=== PATIENT | female | born 1995 ===

== ENCOUNTER 2016-05-24 20:51 | Emergency (ER) | payer OTHER ==
[~2016-05-24] VITALS: Ht 162.6 cm; Wt 102.6 kg
[2016-05-24 20:57] VITALS: TEMP 37.1; Ht 162.6 cm; Wt 102.6 kg
[2016-05-24] MEDS ORDERED: IBUP-1050 PO (21:32)
--- NOTE | 2016-05-24 21:38 | DIAGNOSTIC IMAGING REPORT ---
LEFT SECOND FINGER 3 VIEWS CLINICAL HISTORY: Left 2nd finger swelling. Fall. FINDINGS: 3 views of left second finger are obtained. No prior studies are available for comparison at the time of dictation. The skeletal structures are well mineralized. There is a small avulsion fracture from the volar base of the second middle phalanx with overlying soft tissue edema. No additional fracture is seen. The joint spaces appear maintained. IMPRESSION: There is a small avulsion fracture from the volar base of the second middle phalanx with overlying soft tissue edema. Electronically signed by: Mahad Demarco M.D. 05/24/2016 9:36 PM Dictated Date/Time: 05/24/2016 9:35 PM
--- NOTE | 2016-05-24 22:18 | EMERGENCY ROOM VISIT NOTE ---
History First contact with patient: 21:01 Chief Complaint: FINGER PAIN Stated Complaint: SWOLLEN FINGER ON LEFT HAND History of Present Illness The patient is a 21 year old female who presents to the Emergency Room via private vehicle with complaints of "swollen finger left hand". The patient states that around 8 PM today she was on campus when she accidentally tripped and fell onto her knees and slid on the grass with her left index finger striking a concrete walkway. She points to the dorsal aspect of the second PIP as a location of the pain. She states that she will get a throbbing sensation into the right wrist. She states that her tetanus is up-to-date and denies any other injuries. Patient is right-hand dominant. Review of Systems A complete 6-point Review of Systems was discussed with the patient, with pertinent positives and negatives listed in the History of Present Illness. All remaining Review of Systems questions can be considered negative unless otherwise specified. Past Medical/Surgical History Pyelonephritis Family History DD disease or stones. Social History Smoking Status: Never Smoker Social History: Patient is a [employer] student Current/Historical Medications Scheduled Ibuprofen (Advil), 400 MG PO PRN UD Allergies Coded Allergies: No Known Allergies (Unverified , 05/24/16) Physical Exam Vital Signs Date Time Temp Pulse Resp B/P Pulse Ox O2 Delivery O2 Flow Rate FiO2 05/24/16 22:27 86 18 147/96 97 05/24/16 20:57 37.1 86 18 153/93 97 Room Air Physical Exam VITAL SIGNS - Vital signs and nursing notes were reviewed. Patient is afebrile , she is hypertensive at 153/93, she is not tachycardic and is saturating well on room air 97%. GENERAL -21-year-old female appearing her stated age who is in no acute distress. Communicates well with provider and answers questions appropriately. SKIN - Without rashes. HEAD - NC/AT. EXTREMITIES - No clubbing or peripheral cyanosis. No pretibial edema present. +3 /5 radial pulses palpated throughout left upper extremity. +5/5 strength noted in UE/LE bilaterally. Patient is able to flex and extend the right second digit. There is tenderness on the dorsal aspect of the second digit. Good capillary refill. NEUROLOGIC - Sensory intact to light touch throughout the left upper extremity. No neurologic deficit. Medical Decision & Procedures ER Provider Diagnostic Interpretation: LEFT SECOND FINGER 3 VIEWS CLINICAL HISTORY: Left 2nd finger swelling. Fall. FINDINGS: 3 views of left second finger are obtained. No prior studies are available for comparison at the time of dictation. The skeletal structures are well mineralized. There is a small avulsion fracture from the volar base of the second middle phalanx with overlying soft tissue edema. No additional fracture is seen. The joint spaces appear maintained. IMPRESSION: There is a small avulsion fracture from the volar base of the second middle phalanx with overlying soft tissue edema. Electronically signed by: Mahad Demarco M.D. 05/24/2016 9:36 PM Dictated Date/Time: 05/24/2016 9:35 PM Medical Decision Patient was seen and evaluated as above. After obtaining a thorough history and physical examination radiographs were obtained of the left second digit. Patient did not want anything for pain. Results as above. I agree with the radiologists findings. Patient was splinted with slight flexion of the left second digit via metal splint secondary to fracture. This was secured with Coban. Splint with good fit. She was provided number for orthopedic surgeon to follow-up from today's visit. She was educated upon worrisome symptoms in which to return. She was educated upon management and was discharged home in good condition. There were no neurologic deficits or emergent findings from the exam. In evaluation treatment this patient the following differential diagnoses were entertained: Chip fracture, avulsion fracture, finger contusion among others. Impression Primary Impression: Fracture of phalanx of left index finger Departure Information Dispostion Home / Self-Care Condition GOOD Referrals No Doctor, Assigned (PCP) Irvin Garrett MD Patient Instructions My [facility] Additional Instructions You were seen in the emergency Department for a broken finger. Please wear the splint for comfort and support until pain free and evaluated by orthopedics. Your provider number for orthopedic doctor listed above, please call them first thing tomorrow to schedule follow-up. For pain control, you can use the following [id number] medicines (if >12 yo): - Regular strength (325mg/tab) Tylenol (acetaminophen) 2 tabs every 4-6 hours as needed. Do not exceed 12 tablets in a 24 hour period. Avoid taking more than 4 grams (4000 mg) of Tylenol per day. This includes any other sources of acetaminophen you may take on a regular basis. - Regular strength (200 mg/tab) Advil (ibuprofen) 1-2 tabs every 4-6 hours as needed. Do not exceed a dose of 3200 mg per day. Return to the emergency department if your symptoms worsen despite treatment course outlined above. Please return to the emergency department with any new/concerning symptoms. Problem Qualifiers Primary Impression: Fracture of phalanx of left index finger Encounter type: initial encounter Fracture type: closed Phalanx: distal
[2016-05-24 22:27] VITALS: BP 147/96; PULSE 86; O2SAT 97
== END 2016-05-24 22:28 | disposition home or self-care (01) ==
LOC: C.EDB 20:54 → C.EDD 22:28
DX: S62.601A Fracture of unspecified phalanx of left index finger, initial encounter for closed fracture (principal); W18.09XA Striking against other object with subsequent fall, initial encounter

== ENCOUNTER 2017-05-26 11:40 | Emergency (ER) | payer OTHER ==
[~2017-05-26] VITALS: Ht 160 cm; Wt 108.9 kg
[~2017-05-26 11:40] MED LIST: IBUP-1050 PO
[2017-05-26 11:56] VITALS: TEMP 37.4; Ht 160 cm; Wt 108.9 kg
[2017-05-26] MEDS ORDERED: ACETAMINOPHEN 500 MG TAB PO STA (13:09)
[2017-05-26] MEDS ORDERED: OSELTAMIVIR PHOSPHATE 75 MG CAP PO STA (13:09)
[2017-05-26] MEDS ORDERED: IBUPROFEN 600 MG TAB PO STA (13:09)
[2017-05-26] MEDS ORDERED: ALBUTEROL HFA 8 GM INHALER INH ONE (13:15)
--- NOTE | 2017-05-26 13:23 | DIAGNOSTIC IMAGING REPORT ---
CHEST ONE VIEW PORTABLE HISTORY: cough COMPARISON: None. FINDINGS: The lungs are clear. Cardiac silhouette is normal in size. No pleural effusions. No pneumothorax. IMPRESSION: No acute process. Electronically signed by: Aaron Dickson M.D. 05/26/2017 1:21 PM Dictated Date/Time: 05/26/2017 1:21 PM
[2017-05-26] MEDS ORDERED: VNTHFA/IN INH (13:42)
[2017-05-26] MEDS ORDERED: OSEL75CA12 PO (13:42)
[2017-05-26 13:58] VITALS: BP 118/82; PULSE 102; O2SAT 95
--- NOTE | 2017-05-26 14:05 | EMERGENCY ROOM VISIT NOTE ---
History Report prepared by Sandro: Jodi Weiner Under the Supervision of: Dr. Mahad Vides M.D. First contact with patient: 13:01 Chief Complaint: FLU LIKE SX Stated Complaint: FLU, COUGH MAKES HEAD HURT History of Present Illness The patient is a 22 year old female who presents to the Emergency Room with complaints of worsening flu-like symptoms for the past 3 days. She reports chills and feeling hot and cold. She has a headache that is worsened with coughing. She has been nauseated and vomiting up some mucus. She reports some intermittent diarrhea as well. The patient rates her pain as a 5/10 in severity. She has not been sleeping well due to her symptoms. She has not taken her temperature, but states that she has felt feverish. The patient denies sore throat and urinary symptoms. She is a student at [employer] but denies being around anyone with similar symptoms. She did not have a flu shot this year. Source of History: patient Onset: 3 days ago Position: other (global) Symptom Intensity: 5/10 Quality: other (flu-like) Timing: worsening Modifying Factors (Worsening): other (coughing) Associated Symptoms: + chills, + headache, + nausea, + vomiting, + diarrhea , No sorethroat, No urinary symptoms Review of Systems See HPI for pertinent positives & negatives. A total of 10 systems reviewed and were otherwise negative. Past Medical & Surgical Medical Problems: (1) Fracture of phalanx of left index finger (2) Hypertension Family History No pertinent history stated. Social History Smoking Status: Never Smoker Marital Status: single Housing Status: lives with roommate Occupation Status: [employer] student Current/Historical Medications Scheduled Albuterol Hfa (Ventolin Hfa), 3 PUFFS INH Q6H Oseltamivir (Tamiflu), 75 MG PO BID Allergies Coded Allergies: No Known Allergies (Unverified , 05/24/16) Physical Exam Vital Signs Date Time Temp Pulse Resp B/P (MAP) Pulse Ox O2 Delivery O2 Flow Rate FiO2 05/26/17 13:58 102 22 118/82 95 05/26/17 13:06 104 20 159/91 95 Room Air 05/26/17 11:56 37.4 107 18 138/86 95 Room Air Physical Exam GENERAL: Patient is in no acute distress. HEENT: No acute trauma, normocephalic atraumatic, mucous membranes moist, moderate nasal congestion, no scleral icterus, no throat erythema or exudate. NECK: No stridor, no adenopathy, no meningismus, trachea is midline. LUNGS: Diminished breath sounds, no wheezing, no rhonchi, breath sounds equal, dry cough noted. HEART: Without murmurs gallops or rubs, regular rate and rhythm. ABDOMEN: Soft, nontender, bowel sounds positive, no hernias, no peritonitis. EXTREMITIES: No cyanosis or edema, full range of motion of all the joints without pain or difficulty, no signs for acute trauma. NEUROLOGIC: Oriented x 3, no acute motor or sensory deficits, no focal weakness. SKIN: No rash, no jaundice, no diaphoresis. Medical Decision & Procedures ER Provider Diagnostic Interpretation: Radiology results as stated below per my review and radiologist interpretation: CHEST ONE VIEW PORTABLE HISTORY: cough COMPARISON: None. FINDINGS: The lungs are clear. Cardiac silhouette is normal in size. No pleural effusions. No pneumothorax. IMPRESSION: No acute process. Electronically signed by: Aaron Dickson M.D. 05/26/2017 1:21 PM Dictated Date/Time: 05/26/2017 1:21 PM Laboratory Results Test 05/26/17 13:32 Bedside Glucose 94 mg/dl (70-90) Laboratory results reviewed by me. Medications Administered Medications (Trade) Dose Ordered Sig/Virgil Route Start Time Stop Time Status Last Admin Dose Admin Oseltamivir Phosphate (Tamiflu Cap) 75 mg NOW STAT PO 05/26/17 13:09 05/26/17 13:12 DC 05/26/17 13:36 75 MG Ibuprofen (Motrin Tab) 600 mg NOW STAT PO 05/26/17 13:09 05/26/17 13:12 DC 05/26/17 13:36 600 MG Acetaminophen (Tylenol Tab) 1,000 mg NOW STAT PO 05/26/17 13:09 05/26/17 13:12 DC 05/26/17 13:36 1,000 MG Albuterol (Ventolin Hfa Inhaler) 3 puffs NOW ONCE INH 05/26/17 13:15 05/26/17 13:16 DC 05/26/17 13:37 3 PUFFS ED Course 1301: The patient was evaluated in room C8. A complete history and physical exam was performed. 1309: Tylenol 1000 mg PO, Ibuprofen 600 mg PO, Tamiflu 75 mg PO 1315: Albuterol 3 puffs INH 1342: I reassessed the patient at this time. She is feeling better and resting comfortably. I discussed the results and treatment plan with the patient. I answered all pertaining questions that she had. She expressed understanding and verbalized agreement. The patient will be discharged home. Medical Decision Differential diagnoses includes influenza or flu-like illness, pneumonia, pharyngitis, dehydration, sinusitis. The patient presents with flulike symptoms. Her lungs were somewhat diminished on exam but there were no wheezes or rhonchi. Chest film does not show pneumonia. BSG was done, no diabetes. The patient was not febrile, she was not toxic. She was not hypoxic. Patient was given oral Tamiflu, oral Motrin, oral Tylenol and albuterol via MDI , she is doing well. She is being discharged on the same. If worsening, she can return. This illness appears viral. Medication Reconcilliation Current Medication List: was personally reviewed by me Blood Pressure Screening Patient's blood pressure: Elevated blood pressure Blood pressure disposition: Referred to PCP Impression Primary Impression: Influenza-like symptoms Scribe Attestation The scribe's documentation has been prepared under my direction and personally reviewed by me in its entirety. I confirm that the note above accurately reflects all work, treatment, procedures, and medical decision making performed by me. Departure Information Dispostion Home / Self-Care Prescriptions Albuterol Hfa (VENTOLIN HFA) 200 Puffs/87644 Mcg Aers 3 PUFFS INH Q6H, #1 INHALER Prov: Mahad Vides M.D. 05/26/17 Oseltamivir (Tamiflu) 75 Mg Cap 75 MG PO BID, #10 CAP Prov: Mahad Vides M.D. 05/26/17 Referrals No Doctor, Assigned (PCP) Forms HOME CARE DOCUMENTATION FORM, IMPORTANT VISIT INFORMATION Patient Instructions My [facility] Additional Instructions rest fluids motrin and or tylenol for fever and aches albuterol 3 puffs every 6 hours to help cough tamiflu 2x per day for 5 days return if worsening chest film was clear today
== END 2017-05-26 13:59 | disposition home or self-care (01) ==
LOC: C.EDB 11:41 → C.EDC 13:59
DX: R68.89 Other general symptoms and signs (principal); I10 Essential (primary) hypertension